=== PATIENT | male | born 1945 | race African-American/Black ===

== ENCOUNTER 2020-01-08 16:42 | Emergency (ER) | payer OTHER ==
[~2020-01-08] VITALS: Ht 177.8 cm; Wt 122.8 kg
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
[2020-01-08 17:37] LABS: BASO % 0 % (0-3); EOS # 0.1 x10^3/uL (0.0-0.7); EOS % 1 % (0-3); HEMATOCRIT 42.3 % (39.0-53.0); HEMOGLOBIN 14.8 g/dL (13.0-17.5); LYMPH % 9 % (24-48); MEAN CORPUSCULAR HEMOGLOBIN 34 pg (25-35); MEAN CORPUSCULAR HGB CONC 35 g/dL (31-37); MEAN CORPUSCULAR VOLUME 97 fL (79-100); MONO # 0.8 x10^3/uL (0.0-1.1); MONO % 7 % (0-9); NEUT # 9.6 x10^3uL (1.8-7.7); NEUT % 83 % (31-73); PLATELET COUNT 180 x10^3/uL (140-400); RED BLOOD COUNT 4.35 x10^6/uL (4.30-5.70); RED CELL DISTRIBUTION WIDTH 13.1 % (11.5-14.5); WHITE BLOOD COUNT 11.6 x10^3/uL (4.0-11.0)
[2020-01-08 17:49] LABS: CALCIUM 9.5 mg/dL (8.5-10.1); CREATININE 1.4 mg/dL (0.7-1.3); GFR 49.7; POTASSIUM 3.4 mmol/L (3.5-5.1)
[2020-01-08 17:55] LABS: ALBUMIN 3.8 g/dL (3.4-5.0); MAGNESIUM 1.6 mg/dL (1.8-2.4); TOTAL BILIRUBIN 1.1 mg/dL (0.2-1.0); TOTAL PROTEIN 7.8 g/dL (6.4-8.2)
[2020-01-08 17:59] LABS: BILIRUBIN,URINE NEG (NEG); CLARITY,URINE CLEAR; COLOR,URINE YELLOW; GLUCOSE,URINE NEG (NEG); NITRITE,URINE NEG (NEG); UROBILINOGEN,URINE 0.2 mg/dL (0.2 mg/dL)
[2020-01-08 18:00] LABS: BACTERIA,URINE FEW /HPF (0-FEW); RBC,URINE 0 /HPF (0-2); SQUAMOUS EPITHELIAL CELL,UR MOD /LPF; WBC,URINE 0 /HPF (0-4)
[2020-01-08] MEDS: IOHEXOL 300 MG/ML 75 ML VIAL. IV ONE (18:11)
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
[2020-01-08] MEDS: POTASSIUM CHLORIDE 20 MEQ TABLET.ER. PO ONE (18:50)
[2020-01-08] MEDS: MAGNESIUM HYDROXIDE 2,400 MG/30 ML ORAL.SUSP. PO ONE (18:51)
[2020-01-08] MEDS ORDERED: ORPHENADRINE CITRATE 60 MG/2 ML VIAL. IM ONE (19:10)
[2020-01-08] MEDS: MORPHINE SULFATE 10 MG/ML SYRINGE. SQ ONE (19:11)
[2020-01-08] MEDS: KETOROLAC 30 MG/ML VIAL. IVP ONE (19:16)
[2020-01-08] MEDS: ORPHENADRINE CITRATE 60 MG/2 ML VIAL. IM ONE (19:19)
[2020-01-08 19:25] VITALS: BP 155/91
== END 2020-01-08 19:25 | disposition home or self-care (01) ==
LOC: ER 16:42
DX: S61.216A Laceration without foreign body of right little finger without damage to nail, initial encounter (principal); S20.219A Contusion of unspecified front wall of thorax, initial encounter; D72.829 Elevated white blood cell count, unspecified; E87.6 Hypokalemia; E11.65 Type 2 diabetes mellitus with hyperglycemia; E83.42 Hypomagnesemia; E80.6 Other disorders of bilirubin metabolism; I10 Essential (primary) hypertension; V43.52XA Car driver injured in collision with other type car in traffic accident, initial encounter; Y93.I9 Activity, other involving external motion; Y92.488 Other paved roadways as the place of occurrence of the external cause; Y99.8 Other external cause status
CPT/HCPCS: 36415; 70450; 71260; 72125; 74177; 80053; 81001; 83735; 85025; 85610; 85730; 96372; 96374; 99285; J1885; J2270; J2360; Q9967